=== PATIENT | female | born 1960 | race Caucasian/White ===

== ENCOUNTER → 2016-12-10 | Outpatient (CLI) | payer OTHER ==
[~2016-12-10] MED LIST: ARTHRITIS MEDICATION; COUMADIN PO; NEURONTIN; PERCOCET 10MG PO; ZOLOFT
--- NOTE | ~2016-12-10 | MY30 ---
[facility]. [facility] RADIOLOGY TEXT RESULTS PATIENT: VINNY HOANG LOCATION: [facility] : 56 UNIT #: [id number] AGE: [address]: ZARA GOMEZ APRN SEX: F ORDER DR: [id number] [address] [address] [id number] MR#: [id number] Acc #: [id number] NAME: VINNY HOANG : 1960 SEX: F STUDY DATE/TIME: 12/10/2016 16:30 UNIT: [facility] ROOM: STUDY DESCRIPTION: MY SCREEN RUIZ BILAT DIGITAL Attending Physician: Zara Gomez M.D. Ordering Physician: Zara Gomez M.D. Primary Care Physician: Serena Carrera Aprn MEDICAL IMAGING REPORT This report is preliminary unless electronic signature is present. EXAM Bilateral digital screening mammogram with CAD Date: 12/10/2016 HISTORY No personal history of breast cancer. Family history breast cancer in her mother at age 45, maternal grandmother at age of 65. No personal history breast cancer or current complaints. COMPARISON Bilateral screening mammogram 11/21/2015, 09/30/2014 and 06/15/2013. FINDINGS CC and MLO views were obtained of each breast utilizing digital technique and reviewed with an FDA-approved CAD device. Scattered fibroglandular densities are present bilaterally. Round markers were placed over each breast noting skin lesions. No new or suspicious nodule, architectural distortion or clustered microcalcification is identified. IMPRESSION BIRADS 1. Negative screening mammogram. Routine screening mammogram is recommended in year. Patients over the age of 40 are entered into a reminder system with target due date for the next mammogram. A result letter will also be sent to the patient. BIRADS: 1 Negative [facility] RADIOLOGY TEXT RESULTS PATIENT: VINNY HOANG LOCATION: [facility] : 56 UNIT #: [id number] AGE: [address]: ZARA GOMEZ APRN SEX: F ORDER DR: Dictated by... Jamila Serrano M.D. THIS IS AN ELECTRONICALLY VERIFIED REPORT Jamila Serrano M.D. at 12/13/2016 8:51 AM MARGARITO/tanja TD: 12/11/2016 04:01 JOB #: [id number] MEDICAL IMAGING REPORT Page 1 of 1
== END | disposition home or self-care (01) ==
LOC: SMAM 11-26 13:00
DX: Z12.31 Encounter for screening mammogram for malignant neoplasm of breast (principal); Z80.3 Family history of malignant neoplasm of breast
CPT/HCPCS: G0202